=== PATIENT | male | born 1985 ===

== ENCOUNTER → 2025-02-06 | Outpatient (REF) | payer OTHER ==
[2025-02-06 10:54] LABS: SEMEN APPEARANCE OPAQUE (OPAQUE); SEMEN VISCOSITY LIQUID (LIQUID); SEMEN VOLUME 6.7 ml (2.0-5.0); WBC CONCENTRATION <=1 M/ml (<=1 M/ml)
[2025-02-06 10:55] LABS: SPERM CONCENTRATION 134.4 M/ml (>=15.0)
== END ==
LOC: M LAB REF 10:26
PROVIDERS: ATTEND Physician Assistant
DX: N46.9 Male infertility, unspecified (principal)